=== PATIENT | female | born 1990 | race Hispanic/Latino ===

== ENCOUNTER 2017-03-11 09:29 | Emergency (ER) | payer MEDICAID, OTHER ==
--- NOTE | 2017-03-11 09:45 | ED PDOC ---
Arrival/HPI - General Time Seen by Provider: 03/11/17 09:45 Historian: Patient - History of Present Illness Narrative History of Present Illness (Text): 03/11/17 09:45 26 y/o female, no significant pmh, nkda, c/o throat pain and coughing x 3 days. Pt. stated that she started off as sore throat, associated with the coughing, feeling nasally congestion, no fever or chills, no bodyaches, no dizziness, no chest pain or shortness of breath, no palpitation, no numbness or tingling, no change in vision, no abdominal pain or urinary symptoms, no other medical or psychological complaints. Past Medical History - Provider Review Nursing Documentation Reviewed: Yes Family/Social History - Physician Review Nursing Documentation Reviewed: Yes Family/Social History: Unknown Family HX Allergies/Home Meds Allergies/Adverse Reactions: Allergies No Known Allergies Allergy (Verified 03/11/17 09:47) Home Medications: Home Meds Medication Instructions Recorded Confirmed Lamotrigine [Lamictal Xr] 50 mg PO BID 03/11/17 03/11/17 Sertraline HCl 200 mg PO DAILY 03/11/17 03/11/17 Review of Systems - Review of Systems Constitutional: absent: Fatigue, Fevers Eyes: absent: Vision Changes ENT: Sore Throat, Rhinorrhea Respiratory: Cough, Sputum. absent: SOB, Wheezing Cardiovascular: absent: Chest Pain Gastrointestinal: absent: Abdominal Pain, Nausea, Vomiting Musculoskeletal: absent: Arthralgias, Back Pain Skin: absent: Rash, Pruritis Neurological: absent: Headache, Dizziness Psychiatric: absent: Anxiety, Depression, Suicidal Ideation Physical Exam Vital Signs Reviewed: Yes Vital Signs Temp Pulse Resp BP Pulse Ox 03/11/17 11:00 89 18 118/74 98 03/11/17 09:42 98.4 F 95 H 16 120/83 99 Temperature: Afebrile Blood Pressure: Normal Pulse: Regular Respiratory Rate: Normal Appearance: Positive for: Well-Appearing, Non-Toxic, Comfortable Pain Distress: Mild Mental Status: Positive for: Alert and Oriented X 3 - Systems Exam Head: Present: Atraumatic, Normocephalic Pupils: Present: PERRL Extroacular Muscles: Present: EOMI Conjunctiva: Present: Normal Ears: Present: NORMAL TM, Normal Canal. No: Erythema Mouth: Present: Moist Mucous Membranes Pharnyx: Present: ERYTHEMA. No: EXUDATE, TONSILS ENLARGED, Peritonsilar Swelling, Uvular Deviation, Muffled/Hoarse Voice, Strider, Soft Palate/Uvular Edema Nose (External): Present: Atraumatic. No: Abrasion, Contusion, Laceration Nose (Internal): Present: Normal Inspection, No Active Bleeding, Rhinorrhea. No : Septal Hematoma, Epistaxis Neck: Present: Normal Range of Motion, Trachea Midline. No: Meningeal Signs, MIDLINE TENDERNESS, Lymphadenopathy Respiratory/Chest: Present: Clear to Auscultation, Good Air Exchange, Rhonchi ( bilaterally). No: Respiratory Distress, Accessory Muscle Use, Wheezes, Decreased Breath Sounds, Rales, Retracting, Tachypneic Cardiovascular: Present: Regular Rate and Rhythm, Normal S1, S2. No: Murmurs Abdomen: Present: Normal Bowel Sounds. No: Tenderness, Distention, Peritoneal Signs, Rebound, Guarding Back: Present: Normal Inspection Upper Extremity: Present: Normal Inspection. No: Cyanosis, Edema Lower Extremity: Present: Normal Inspection. No: Edema Neurological: Present: GCS=15, Speech Normal, Motor Func Grossly Intact, Gait Normal, Memory Normal Skin: Present: Warm, Dry, Normal Color. No: Rashes Psychiatric: Present: Alert, Oriented x 3, Normal Insight, Normal Concentration Medical Decision Making ED Course and Treatment: 03/11/17 10:02 -rapid strept -chest xray -observe and reassess 03/11/17 11:28 -Urine hcg negative -Chest xray show no active consolidation or infiltrate -Discharge home with zithromax, prednisone, robitussin dm, tylenol, stay hydrated, bed rest, follow up with your own pmd and ENT within 2 days, return to the ER for any new or worsening signs or symptoms. - Lab Interpretations Lab Results: Lab Results 03/11/17 09:58: Grp A Beta Strep Ag Negative - RAD Interpretation Radiology Orders: 03/11/17 09:58 CHEST W/APICAL(2VW W/APICAL) [RAD] Stat HISTORY: cough COMPARISON: No prior. TECHNIQUE: Chest PA and lateral FINDINGS: LUNGS: No focal consolidation. The interstitial markings are slightly increased and coarsened with a few scattered peribronchial cuffing changes. Findings may represent sequela of reactive/inflammatory airway disease or viral illness. PLEURA: No significant pleural effusion identified. No pneumothorax apparent. CARDIOVASCULAR: Normal. OSSEOUS STRUCTURES: No significant abnormalities. VISUALIZED UPPER ABDOMEN: Normal. OTHER FINDINGS: None. IMPRESSION: No active disease. PROCEDURE: No focal consolidation. The interstitial markings are slightly increased and coarsened with a few scattered peribronchial cuffing changes. Findings may represent sequela of reactive/inflammatory airway disease or viral illness. Rn Urology: Radiologist - PA / LABORATORY COURIER / Resident Statement / has reviewed & agrees with the documentation as recorded. Disposition/Present on Arrival - Present on Arrival Any Indicators Present on Arrival: No History of DVT/PE: No History of Uncontrolled Diabetes: No Urinary Catheter: No History of Decub. Ulcer: No - Disposition Have Diagnosis and Disposition been Completed?: Yes Diagnosis: Bronchitis, Throat pain Disposition: HOME/ ROUTINE Disposition Time: 11:29 Patient Plan: Discharge Condition: GOOD Additional Instructions: -Discharge home with zithromax, prednisone, robitussin dm, tylenol, stay hydrated, bed rest, follow up with your own pmd and ENT within 2 days, return to the ER for any new or worsening signs or symptoms. Prescriptions: Albuterol HFA [Ventolin HFA 90 mcg/actuation (8 g)] 2 puff IH [id number] #1 in Acetaminophen [Tylenol 325mg tab] 2 tab PO QID PRN #30 tab PRN Reason: Other Azithromycin [Zithromax] 250 mg PO DAILY #6 tab guaiFENesin/Dextromethorphan [guaiFENesin-DM] 10 ml PO QID PRN #250 ml PRN Reason: Other Prednisone 50 mg PO DAILY #5 tab [place]: [facility] [place] [facility] [place] - Follow up with primary Cl Pastrana DO [Staff Provider] - Follow up with primary Forms: WORK NOTE
[2017-03-11 09:47] VITALS: TEMP 98.4
[2017-03-11 11:01] VITALS: BP 118/74; PULSE 89; RESP 18; O2SAT 98
--- NOTE | 2017-03-11 11:45 | RAD ---
HISTORY: cough COMPARISON: No prior. TECHNIQUE: Chest PA and lateral FINDINGS: LUNGS: No focal consolidation. The interstitial markings are slightly increased and coarsened with a few scattered peribronchial cuffing changes. Findings may represent sequela of reactive/inflammatory airway disease or viral illness. PLEURA: No significant pleural effusion identified. No pneumothorax apparent. CARDIOVASCULAR: Normal. OSSEOUS STRUCTURES: No significant abnormalities. VISUALIZED UPPER ABDOMEN: Normal. OTHER FINDINGS: None. IMPRESSION: No active disease. PROCEDURE: No focal consolidation. The interstitial markings are slightly increased and coarsened with a few scattered peribronchial cuffing changes. Findings may represent sequela of reactive/inflammatory airway disease or viral illness.
== END 2017-03-11 11:37 | disposition home or self-care (01) ==
LOC: ED 09:29
DX: J40 Bronchitis, not specified as acute or chronic (principal); R07.0 Pain in throat